=== PATIENT | female | born 1975 | race Caucasian/White ===

== ENCOUNTER 2017-06-06 14:26 | Emergency (ER) | payer BC ==
[~2017-06-06] VITALS: Ht 165.1 cm; Wt 118.0 kg
[~2017-06-06 14:26] MED LIST: EST1 PO; FLNIN NAE; MULT-506 PO
[2017-06-06 14:30] VITALS: TEMP 36.5; Ht 165.1 cm; Wt 118.0 kg
[2017-06-06] MEDS ORDERED: OXYCODONE HCL IR 5 MG TAB (IMMEDIATE RELEASE) PO STA (14:40)
--- NOTE | 2017-06-06 14:45 | EMERGENCY ROOM VISIT NOTE ---
History Report prepared by Mehul: Karen De Jesus Under the Supervision of: Dr. Moses Mejia M.D. First contact with patient: 14:31 Chief Complaint: BACK PAIN Stated Complaint: BACK PAIN History of Present Illness The patient is a 41 year old female who presents to the Emergency Room with complaints of constant back pain starting yesterday after taking her trash out. The patient notes that she have incidents of back pain about once a year. The patient denies urinary symptoms or incontinence. The patient notes a shooting pain down her right leg. She takes Flexeril at night when she has incidents of back pain. She also notes that she has a past history of spine disc issues. She denies any numbness in her feet or legs. Source of History: patient Onset: yesterday Position: back Timing: constant Associated Symptoms: No urinary symptoms Note: Pt denies any incontinence. Pt notes shooting right leg pain Review of Systems See HPI for pertinent positives & negatives. A total of 10 systems reviewed and were otherwise negative. Past Medical & Surgical Medical Problems: (1) Cervicalgia (2) Endometriosis of pelvic peritoneum (3) Female pelvic peritoneal adhesions (4) hemorrhagic ovarian cyst (5) Lumb/Lumbosac Disc Degen (6) Nontraumatic hemoperitoneum Surgical Problems: (1) diagnostic laparoscopy (2) H/O: hysterectomy (3) History of right salpingo-oophorectomy Family History no pertinent family history stated Social History Smoking Status: Never Smoker Marital Status: Current/Historical Medications Scheduled Vqbehoj-Iofhiqsfnkuea-Gogefzwh (Excedrin Migraine), 2 TABS PO PRN UD Biotin (Biotin), 1 TAB PO DAILY Calcium Carbonate-Cholecalcife (Caltrate 600+D), 1 TAB PO DAILY Cetirizine (Zyrtec), 10 MG PO DAILY Estradiol (Estradiol), 1 MG PO DAILY Methylprednisolone (Medrol Dosepak), 1 PKT PO UD Naproxen Sodium (Aleve), 440 MG PO PRN UD Scheduled PRN Cyclobenzaprine Hcl (Flexeril), 10 MG PO HS PRN for Muscle Spasms Diazepam (Valium), 5 MG PO Q6H PRN for Pain Fluticasone Propionate (Nasal) (Flonase Allergy Relief), 2 SPRAYS RHYS DAILY PRN for RN Oxycodone Immediate Rel Tab (Roxicodone Ir), 1-2 TAB PO Q4H PRN for Severe Pain Triamcinolone Acet (Aristocort 0.1%), 1 APPLN TOP BID PRN for RASHES Allergies Coded Allergies: Aluminum (Verified Allergy, Unknown, ALUMINIUM IN DEODARANT CAUSES RASH, 09/10/11) Lemon (Verified Adverse Reaction, Unknown, 09/10/11) Physical Exam Vital Signs Date Time Temp Pulse Resp B/P (MAP) Pulse Ox O2 Delivery O2 Flow Rate FiO2 06/06/17 16:02 88 20 112/72 100 06/06/17 14:30 36.5 112 18 137/89 98 Room Air Physical Exam GENERAL: Patient is well appearing and in moderate distress. Standing due to pain with sitting, favors right leg although has full strength. HEENT: No acute trauma, normocephalic atraumatic, mucous membranes moist, no nasal congestion, no scleral icterus. NECK: No stridor, no adenopathy, no meningismus, trachea is midline. LUNGS: No dyspnea. Clear to auscultation and equal bilaterally. No wheeze, no rhonchi. HEART: Regular rate and rhythm. No murmurs, rubs, gallops appreciated. ABDOMEN: Soft, nontender, bowel sounds positive, no masses appreciated, no peritonitis. BACK: No midline tenderness, Tender to palpation in right lower back. EXTREMITIES: Normal motion all extremities, no cyanosis, no edema. NEUROLOGIC: Alert and oriented, no acute motor or sensory deficits, no focal weakness, cranial nerves grossly intact. SKIN: No rash, no jaundice, no diaphoresis. Medical Decision & Procedures ER Provider Diagnostic Interpretation: Radiology results and stated below per my review and radiologist interpretation: L-SPINE MIN 4 VIEWS ROUTINE FINDINGS: Vertebral body heights are maintained. There is no fracture or suspicious lesion. There is moderate disc space narrowing at L3-L4. Mild degenerative disc disease and facet arthrosis is noted at multiple additional levels. IMPRESSION: 1. No acute lumbar spine fracture. 2. Moderate disc space narrowing at L3-L4 with mild disc space narrowing at L2-L3. Electronically signed by: Flaquito An M.D. Medications Administered Medications (Trade) Dose Ordered Sig/Kalee Route Start Time Stop Time Status Last Admin Dose Admin Prednisone (PredniSONE TAB) 60 mg NOW STAT PO 06/06/17 14:40 06/06/17 14:41 DC 06/06/17 14:48 60 MG Oxycodone HCl (Roxicodone Immediate Rel Tab) 5 mg NOW STAT PO 06/06/17 14:40 06/06/17 14:41 DC 06/06/17 14:40 5 MG ED Course 1434: The patient was evaluated in room A10. A complete history and physical exam was performed. 1440: Oxycodone HCl 5 mg PO, Prednisone 60 mg PO. 1539: The patient is feeling better and ready to go home. We discussed the risks of Oxycodone and Valium. 1545: Reevaluated the patient. Discussed results and discharge instructions: She verbalized understanding and agreement. The patient is ready for discharge. Medical Decision Differential: Musculoskeletal, Disc Herniation, Fracture, Cord Compression, Discitis, Infectious, Aortic Pathology, Renal Colic, UTI/Pyelonephritis, Acute Exacerbation of Chronic Pain, Sciatica, Cauda Equina, amongst other pathologies entertained. Pleasant 41 yr old female with known disc disease who has previous history of sciatica arrives with right lower back pain radiating down leg. Imaging with degenerative changes though no acute findings. She has no neuro deficits nor abdominal pain and n/v is intact fully. Consistent with nerve inflammation though no acute cord compression. No other acute symptoms thus rurther imaging not indicated given her history. Long discussion on controlled rx. Aware of symptoms requiring RTED. Steroids given history. Follow up with PCP stressed. [place] Drug Monitoring Program Search Results: patient reviewed within database Drug Monitoring Findings: No narcotic scripts in the last year. Medication Reconcilliation Current Medication List: was personally reviewed by me Blood Pressure Screening Patient's blood pressure: Elevated blood pressure Blood pressure disposition: Elevated BP felt to be situational Impression Primary Impression: Right-sided low back pain with sciatica Scribe Attestation The scribe's documentation has been prepared under my direction and personally reviewed by me in its entirety. I confirm that the note above accurately reflects all work, treatment, procedures, and medical decision making performed by me. Departure Information Dispostion Home / Self-Care Prescriptions Methylprednisolone (MEDROL DOSEPAK) 4 Mg Don 1 PKT PO UD for 6 Days, #1 PKT Prov: Moses Mejia M.D. 06/06/17 Diazepam (Valium) 5 Mg Tab 5 MG PO Q6H Y for Pain, #15 TAB Prov: Moses Mejia M.D. 06/06/17 Oxycodone Immediate Rel Tab (ROXICODONE IR) 5 Mg Tab 1-2 TAB PO Q4H Y for Severe Pain, #20 TAB Prov: Moses Mejia M.D. 06/06/17 Referrals Rosalio Thomson M.D.([facility]) (PCP) Forms HOME CARE DOCUMENTATION FORM, IMPORTANT VISIT INFORMATION Patient Instructions ED Sciatica, [facility] Additional Instructions You have received a narcotic pain medication prescription. These medications may cause drowsiness and should not be used with other sedative medications. Do not drive, drink alcohol, perform dangerous activities, nor make important decisions after taking these medications. custodial use or inappropriate use may lead to addiction.
--- NOTE | 2017-06-06 15:35 | DIAGNOSTIC IMAGING REPORT ---
L-SPINE MIN 4 VIEWS ROUTINE CLINICAL HISTORY: Low back pain. Right sciatica. COMPARISON: Lumbar spine MRI February 19, 2009. FINDINGS: Vertebral body heights are maintained. There is no fracture or suspicious lesion. There is moderate disc space narrowing at L3-L4. Mild degenerative disc disease and facet arthrosis is noted at multiple additional levels. IMPRESSION: 1. No acute lumbar spine fracture. 2. Moderate disc space narrowing at L3-L4 with mild disc space narrowing at L2-L3. Electronically signed by: Flaquito An M.D. 06/06/2017 3:33 PM Dictated Date/Time: 06/06/2017 3:31 PM
[2017-06-06] MEDS ORDERED: DIAZ-165 PO ×2 (15:50→16:03)
[2017-06-06] MEDS ORDERED: OXYC1TAB3 PO ×2 (15:50→16:03)
[2017-06-06] MEDS ORDERED: METH4PAK PO ×2 (15:51→16:03)
[2017-06-06] MEDS ORDERED: FLUT0.15 NAE (16:00)
[2017-06-06] MEDS ORDERED: ASPI-390 PO (16:00)
[2017-06-06] MEDS ORDERED: NAPR220T40 PO (16:00)
[2017-06-06] MEDS ORDERED: TRMCR130WC TOP (16:00)
[2017-06-06] MEDS ORDERED: CYCL10TA6 PO (16:00)
[2017-06-06 16:02] VITALS: BP 112/72; PULSE 88; O2SAT 100
[2017-06-06] MEDS ORDERED: CETI10TA84 PO (16:57)
[2017-06-06] MEDS ORDERED: BIOT1TAB5 PO (18:54)
[2017-06-06] MEDS ORDERED: CALC-354 PO (18:54)
== END 2017-06-06 16:05 | disposition home or self-care (01) ==
LOC: C.EDB 14:27 → C.EDA 16:05
DX: M54.41 Lumbago with sciatica, right side (principal); Z79.899 Other long term (current) drug therapy

== ENCOUNTER → 2017-09-15 | Outpatient (CLI) | payer BC ==
[~2017-09-15] MED LIST changes: +ASPI-390 PO; +BIOT1TAB5 PO; +CALC-354 PO; +CETI10TA84 PO; +CYCL10TA6 PO; +DIAZ-165 PO; -FLNIN NAE; +FLUT0.15 NAE; +METH4PAK PO; -MULT-506 PO; +NAPR220T40 PO; +OXYC1TAB3 PO; +TRMCR130WC TOP
--- NOTE | 2017-09-15 15:09 | MAMMOGRAPHY REPORT ---
BILATERAL DIGITAL SCREENING MAMMOGRAM TOMOSYNTHESIS WITH CAD: 09/15/2017 CLINICAL HISTORY: Routine screening. Patient has no complaints. TECHNIQUE: Bilateral breast tomosynthesis in addition to standard 2D mammography was performed. Curre nt study was also evaluated with a Computer Aided Detection (CAD) system. COMPARISON: Comparison is made to exam dated: 09/05/2016 mammogram - [facility]. BREAST COMPOSITION: There are scattered areas of fibroglandular density in both breasts. FINDINGS: There is a 4.5 mm focal asymmetry in the right breast at 12 o'clock posteriorly, for which additional spot compression tomosynthesis views and possible ultrasound are recommended. No other suspicious mass, architectural distortion or cluster of microcalcifications is seen bilkunala lllove. IMPRESSION: ACR BI-RADS CATEGORY 0: INCOMPLETE EVALUATION: NEED ADDITIONAL IMAGING EVALUATION The 4.5 mm focal asymmetry in the 12:00 posterior right breast needs additional evaluation. The patient will be called to schedule an appointment. Approximately 10% of breast cancers are not detected with mammography. A negative mammographic report should not delay biopsy if a clinically suggestive mass is present. Kathy Luque M.D. ay/:09/15/2017 08:23:35 Police Radio Dispatcher: Yadira CUEVAS(Shirin)([place])([place]), [facility] letter sent: Addl Imaging 0 BI-RADS Code: ACR BI-RADS Category 0: Incomplete Evaluation: Need Additional Imaging Evaluation
== END | disposition home or self-care (01) ==
LOC: C.MAMM 07:03
PROVIDERS: ATTEND Obstetrics & Gynecology
DX: Z12.31 Encounter for screening mammogram for malignant neoplasm of breast (principal); R92.8 Other abnormal and inconclusive findings on diagnostic imaging of breast

== ENCOUNTER → 2017-09-23 | Outpatient (CLI) | payer BC ==
--- NOTE | 2017-09-23 15:18 | MAMMOGRAPHY REPORT ---
UNILATERAL RIGHT DIGITAL DIAGNOSTIC MAMMOGRAM TOMOSYNTHESIS AND TARGETED RIGHT ULTRASOUND: 09/23/2017 CLINICAL HISTORY: Callback from screening mammogram for right breast focal asymmetry. TECHNIQUE: Breast tomosynthesis in addition to standard 2D mammography was performed. Spot compress ion right CC and MLO 2-D and tomosynthesis images were obtained. COMPARISON: Comparison is made to exams dated: 09/15/2017 mammogram and 09/05/2016 mammogram - [facility]. BREAST COMPOSITION: There are scattered areas of fibroglandular density in the right breast. FINDINGS: The spot compression views demonstrate a benign-appearing low density oval circumscribed 5 mm mass within the right breast at approximately 11:30 to 12:00 posteriorly, only seen on the tomosy nthesis images. The finding does not appear significantly changed compared to the 2016 exam on the additional views. Targeted ultrasound was performed of the right 11:30 to 12:00 breast in the region of the mammographi c mass. In the right breast at 11:30, approximately 2 cm from the nipple, there is an oval circumscr ibed parallel slightly hypoechoic mass with a thin internal septation measuring 5 x 3 x 4 mm. This m ay or may not correspond with the mammographic mass and is probably benign and may represent a normal fat lobule versus a cyst. No suspicious masses were evident. IMPRESSION: ACR-BI-RADS CATEGORY 3: PROBABLY BENIGN, TARGETED ULTRASOUND ACR-BI-RADS CATEGORY 3: PRO BABLY BENIGN Benign-appearing circumscribed 5 mm mass seen within the right 11:30 to 12:00 breast mammographically . A corresponding hypoechoic 5 mm mass is seen within the right 11:30 breast on ultrasound, which ma y or may not correspond with the mammographic finding and is probably benign and may represent a norm al fat lobule or cyst. Recommend follow-up diagnostic tomosynthesis mammograms and targeted ultrasou nd of the right breast in 6 months to confirm stability. The patient has been verbally notified of the results. Approximately 10% of breast cancers are not detected with mammography. A negative mammographic report should not delay biopsy if a clinically suggestive mass is present. Charis Jiménez M.D. ah/:09/23/2017 09:19:34 Hydrologic Modeler: Chaz CUEVAS(R)(M), [facility] letter sent: Follow Up Recommended 3 BI-RADS Code: ACR-BI-RADS Category 3: Probably Benign Ultrasound BI-RADS: ACR-BI-RADS Category 3: Pr obably Benign
== END | disposition home or self-care (01) ==
LOC: C.MAMM 08:19
PROVIDERS: ATTEND Obstetrics & Gynecology
DX: N64.89 Other specified disorders of breast (principal); N63.10 Unspecified lump in the right breast, unspecified quadrant

== ENCOUNTER → 2017-10-28 | Outpatient (CLI) | payer BC | END | disposition home or self-care (01) | LOC: C.LAB1850 11:11 | PROVIDERS: ATTEND Obstetrics & Gynecology | DX: N64.4 Mastodynia (principal) ==